=== PATIENT | male | born 1980 | race Two or more races ===

== ENCOUNTER 2023-06-05 12:35 | Emergency (ER) | payer SELFPAY ==
--- NOTE | ~2023-06-05 | CT_ITS ---
EXAMINATION: CT ABDOMEN AND PELVIS WITHOUT CONTRAST CLINICAL INFORMATION: Right flank pain. History of kidney stones. COMPARISON: None available at time of dictation. TECHNIQUE: Multidetector volumetric imaging was performed from the superior aspect of the liver through the pubic symphysis. Sagittal and coronal reformatted images were obtained on the technologist's workstation. This CT examination was performed using dose optimization techniques as appropriate, variously including the following: *Automated exposure control *Adjustment of mA and/or kV according to patient size (this includes techniques or standardized protocols for targeted exams where dose is matched to indication/reason for exam; i.e. extremities or head) *Use of iterative reconstruction technique DLP: 466 mGy-cm FINDINGS: LUNG BASES: The visualized lung bases are unremarkable. LIVER, GALLBLADDER, AND BILIARY TREE: The liver is normal in size, shape, and attenuation. No focal hepatic lesion or biliary ductal dilatation is present. The gallbladder is unremarkable with no evidence of radiopaque gallstones, gallbladder wall thickening, or obvious pericholecystic inflammatory changes. PANCREAS: Unremarkable. SPLEEN: Unremarkable. ADRENAL GLANDS: Unremarkable. KIDNEYS AND URETERS: The kidneys are normal in size, shape, and attenuation. No hydronephrosis, hydroureter, or calculi seen. No perinephric stranding. BLADDER: Unremarkable. GASTROINTESTINAL TRACT: The small bowel and colon are normal in caliber. There is no pericolonic inflammatory stranding. The appendix is normal in appearance. ABDOMINAL WALL: No significant hernia is appreciated. LYMPH NODES: No lymphadenopathy. VASCULAR: No abdominal aortic aneurysm. PELVIC VISCERA: Unremarkable. There are pelvic phleboliths. OSSEOUS STRUCTURES: Unremarkable. CT/CT abdomen pelvis wo IV con IMPRESSION: No renal, ureteral, or urinary bladder calculus is identified. Calcifications within the pelvis are felt to represent pelvic phleboliths as opposed to distal ureteral calculi. The remainder of the examination is within normal limits. Fleischner guidelines were followed.
[2023-06-05 13:13] VITALS: BP 106/74; PULSE 70; RESP 18; TEMP 36.6; O2SAT 96; BMI 26.6
--- NOTE | 2023-06-05 13:13 | ED_ITS ---
HPI - General Adult General Chief complaint: General Medical Stated complaint: Kidney stones Time Seen by Provider: 06/05/23 20:42 Source: patient and family Mode of arrival: ambulatory Limitations: no limitations History of Present Illness HPI narrative: Patient comes to the emergency room complaining of right-sided flank pain since yesterday. Patient states that he denies hematuria or dysuria. Patient states that he has a kidney stones in the past, last time 4 years ago. Patient denies any falls or trauma. Denies nausea or vomiting. Related Data Previous Rx's ?Medication ?Instructions ?Recorded ibuprofen 600 mg tablet 600 mg PO TID PRN fever or pain 06/05/23 #20 tabs tramadol 50 mg tablet 50 mg PO BID PRN pain #6 tabs 06/05/23 Allergies Allergy/AdvReac Type Severity Reaction Status Date / Time No Known Allergies Allergy Verified 06/05/23 13:14 Review of Systems 2 Review of Systems: Constitutional : No Weight loss, No Fever, No Chills, No Night Sweats, No Fatigue, No Malaise ENT/Mouth : No Hearing loss, No Ear Pain, No Nasal Congestion, No Sinus Pain, No Hoarseness, No sore throat, No Rhinorrhea, No Swallowing Difficulty Eyes: No Eye Pain, No Swelling, No Redness, No Foreign Body, No Discharge, No Vision Changes Cardiovascular : No Chest Pain, No SOB, No Dyspnea on Exertion, No Orthopnea, No Edema, No Palpitations Respiratory : No Cough, No Sputum, No Wheezing, No Smoke Exposure, No Dyspnea Gastrointestinal : Complaining of mild Nausea, No Vomiting, No Diarrhea, No Constipation, No abdominal Pain, No Hematochezia, No Melena Genitourinary : no irregular bleeding, No Dysuria, No Urinary Frequency, No Hematuria, No Urinary Incontinence, No Urgency, complaining of right-sided Flank Pain, No Urinary Flow Changes, No Hesitancy Musculoskeletal : No joint pain, No Myalgias, No Joint Swelling Skin : No Skin Lesions, No rash Neuro : No Weakness, No Numbness, No Paresthesias, No Loss of Consciousness, No Dizziness, No Headache Psych : No Anxiety/Panic, No Depression, No SI/HI/AH/VH, No Social Issues, Heme/Lymph: No Bruising, No Bleeding,No Lymphadenopathy Endocrine : No Polyuria, No Polydipsia, No Temperature Intolerance [facility] Past Medical History Medical History (Updated 06/05/23 @ 21:24 by Marlen Beaulieu MD) Kidney stones Social History Social History Advance Directives: No Advance Directives Information Provided: No Do you have a plan to hurt others: No Plan Physical Exam ED Vital Signs: Vital Signs - 24 hr 06/05/23 13:13 06/05/23 20:17 Temperature 97.9 F Pulse Rate 70 64 Respiratory Rate 18 19 Blood Pressure 106/74 120/75 Pulse Oximetry 96 98 Oxygen Delivery Method Room Air Room Air BMI result Body Mass Index 26.6 Const Other: Appearance: Alert. Oriented X3. No acute distress. Well-appearing Eyes: Pupils equal, round and reactive to light. ENT: Pharynx normal. Neck: Normal inspection. Neck supple. No lymph nodes noted. No crepitus CVS: Normal heart rate and rhythm. Pulses normal. Normal S1 and S2 Respiratory: No respiratory distress. Breath sounds normal. No Wheezing. No rales Abdomen: Soft and nontender. No rigidity. No distention. The flank pain to palpation over right side Skin: Skin warm and dry. Normal skin color. Normal skin turgor. Extremities: No lower extremity edema. No Lacerations. No Rash Neuro: Oriented X 3. No motor deficit. No sensory deficit. Moving all extremities. No slurred speech. CN 2 through 12 grossly intact Psych: calm, cooperative, normal affect Course Course Course Narrative: This is a rapid medical exam: Additional HPI, ROS, PE not included below will be deferred to primary provider. Patient is a 43-year-old male with history of kidney stones presenting to the ED with complaint of R flank pain since yesterday, states feels similar to prior stones. Nausea without vomiting. Denies gross hematuria. Plan: UA, labs, CT Medical Decision Making Medical Decision Making [facility] Narrative: -my interpretation of labs, hematology and chemistry do not show any acute abnormality , urinalysis negative -interpretation of CT scan, no obvious kidney stones. -patient states that he feels well, declined any pain medication. Differential Diagnosis Differential Diagnoses: The differential diagnosis associated with the presentation includes (UTI, pyelonephritis, kidney stone, SBO) Admission/Observation Consideration of admission/observation: Escalation of care including admission/observation considered (Given patient's signs and symptoms and duration of pain, admission was considered) Lab Data [facility] Lab Attestation statement: I reviewed the patient's lab results. 06/05/23 13:36 06/05/23 13:36 Labs: Lab Results 06/05/23 06/05/23 Range/Units 13:36 21:02 WBC 7.3 (4.8-10.8) X10*3/uL RBC 4.58 L (4.60-5.80) X10*6/uL Hgb 14.2 (14.0-18.0) g/dl Hct 41.2 L (42.0-52.0) % MCV 90.0 (80.0-98.0) fL MCH 31.0 (27.0-33.0) pg MCHC 34.5 (31.0-36.0) g/dl RDW 10.7 L (11.0-16.0) % Plt Count 239 (160-400) X10*3/uL MPV 9.2 L (9.4-12.4) fL Immature Gran % (Auto) 0.1 (0.0-0.4) % Neut % (Auto) 52.0 (45-73) % Lymph % (Auto) 38.9 (20-40) % [place] % (Auto) 6.2 (2-11) % Eos % (Auto) 2.1 (0-4) % Baso % (Auto) 0.7 (0-2) % Lymph # (Auto) 2.8 (1.2-4.9) X10*3/uL [place] # (Auto) 0.5 (0.1-1.2) X10*3/uL Eos # (Auto) 0.2 (0.0-0.4) X10*3/uL Baso # (Auto) 0.1 (0.0-0.2) X10*3/uL Abs Immat Gran (auto) 0.01 (0.00-0.03) X10*3/uL Absolute Neuts (auto) 3.8 (2.0-8.3) x10*3/uL Absolute Nucleated RBC 0.000 (0.0-0.012) X10*3/uL Nucleated RBC % (auto) 0.0 (0.0-0.2) /100WBC Sodium 140 (135-145) mmol/L Potassium 4.2 (3.3-5.1) mmol/L Chloride 107 (96-108) mmol/L Carbon Dioxide 30 H (22-29) mmol/L Anion Gap 7 L (12-20) BUN 11 (9-16) mg/dL Creatinine 0.87 (0.5-1.4) mg/dL Estim Creat Clear Calc 100.8 Estimated GFR > 60 Random Glucose 93 (60-115) mg/dL Calcium 9.7 (8.4-10.2) mg/dL Total Bilirubin 0.7 (0.0-1.0) mg/dL AST 62 H (5-37) U/L ALT 34 (0-40) U/L Alkaline Phosphatase 106 (39-117) U/L Total Protein 7.9 (6.5-8.0) g/dL Albumin 4.3 (3.5-5.0) g/dL Urine Color Yellow Urine Appearance Clear Urine pH 7.0 (5.0-9.0) Ur Specific [place] 1.025 (1.005-1.025) Urine Protein Negative (Neg-Trace) mg/dL Urine Glucose (UA) Negative (Negative) mg/dL Urine Ketones Trace (Negative) mg/dL Urine Blood Negative (Negative) Urine Nitrite Negative (Negative) Ur Leukocyte Esterase Negative (Negative) Independent Interpretation I performed an independent interpretation of an: CT Scan Radiology Impression Discussion of test interpretation with radiology: I have reviewed the radiologist's reading. Radiologist Impression: FINDINGS: LUNG BASES: The visualized lung bases are unremarkable. LIVER, GALLBLADDER, AND BILIARY TREE: The liver is normal in size, shape, and attenuation. No focal hepatic lesion or biliary ductal dilatation is present. The gallbladder is unremarkable with no evidence of radiopaque gallstones, gallbladder wall thickening, or obvious pericholecystic inflammatory changes. PANCREAS: Unremarkable. SPLEEN: Unremarkable. ADRENAL GLANDS: Unremarkable. KIDNEYS AND URETERS: The kidneys are normal in size, shape, and attenuation. No hydronephrosis, hydroureter, or calculi seen. No perinephric stranding. BLADDER: Unremarkable. GASTROINTESTINAL TRACT: The small bowel and colon are normal in caliber. There is no pericolonic inflammatory stranding. The appendix is normal in appearance. ABDOMINAL WALL: No significant hernia is appreciated. LYMPH NODES: No lymphadenopathy. VASCULAR: No abdominal aortic aneurysm. PELVIC VISCERA: Unremarkable. There are pelvic phleboliths. OSSEOUS STRUCTURES: Unremarkable. CT/CT abdomen pelvis wo IV con IMPRESSION: No renal, ureteral, or urinary bladder calculus is identified. Calcifications within the pelvis are felt to represent pelvic phleboliths as opposed to distal ureteral calculi. The remainder of the examination is within normal limits. Critical Care Time Critical Care Time Critical Care Time: Yes Total Critical Care Time: 35 Attestation: I have personally provided critical care time. Time includes review of lab data, radiology results, discussion with consultants, and monitoring for potential decompensation. Intervention performed as documented. Discharge Plan Discharge Clinical Impression: Right flank pain Patient Disposition: Home, Self-Care Instructions: Abdominal Pain (ED) Additional Instructions: Please follow-up with your primary care physician tomorrow. If you have any worsening or new symptoms, please return to the emergency room or call 911 Prescriptions: New tramadol 50 mg tablet 50 mg PO BID PRN (Reason: pain) Qty: 6 0RF ibuprofen 600 mg tablet 600 mg PO TID PRN (Reason: fever or pain) Qty: 20 0RF Print Language: Yi
[2023-06-05 13:40] LABS: MANUAL DIFF FLAG NO
[2023-06-05 13:45] LABS: Basophils Absolute Auto 0.1 X10*3/uL (0.0-0.2); Basophils Percent Auto 0.7 % (0-2); Eosinophils Absolute Auto 0.2 X10*3/uL (0.0-0.4); Eosinophils Percent Auto 2.1 % (0-4); Hematocrit 41.2 % (42.0-52.0); Hemoglobin 14.2 g/dl (14.0-18.0); Imm Gran Abs Auto 0.01 X10*3/uL (0.00-0.03); Imm Gran Pct Auto 0.1 % (0.0-0.4); Lymphocytes Absolute Auto 2.8 X10*3/uL (1.2-4.9); Lymphocytes Percent Auto 38.9 % (20-40); Mean Corpuscular HGB Conc 34.5 g/dl (31.0-36.0); Mean Platelet Volume 9.2 fL (9.4-12.4); Monocytes Absolute Auto 0.5 X10*3/uL (0.1-1.2); Monocytes Percent Auto 6.2 % (2-11); Neutrophils Absolute Auto 3.8 x10*3/uL (2.0-8.3); Platelet Count 239 X10*3/uL (160-400); Red Blood Count 4.58 X10*6/uL (4.60-5.80); Red Cell Distribution Width 10.7 % (11.0-16.0); White Blood Count 7.3 X10*3/uL (4.8-10.8)
[2023-06-05 14:01] LABS: Alanine Aminotransferase 34 U/L (0-40); Albumin Level 4.3 g/dL (3.5-5.0); Alkaline Phosphatase 106 U/L (39-117); Anion Gap 7 (12-20); Aspartate Amino Transferase 62 U/L (5-37); Bilirubin Total 0.7 mg/dL (0.0-1.0); Blood Urea Nitrogen 11 mg/dL (9-16); Calcium 9.7 mg/dL (8.4-10.2); Carbon Dioxide 30 mmol/L (22-29); Chloride 107 mmol/L (96-108); Creatinine Clr Calc Pharmacy 100.8; Estimated Glomerular Filt Rate > 60; Glucose Random 93 mg/dL (60-115); Potassium 4.2 mmol/L (3.3-5.1); Sodium 140 mmol/L (135-145); Total Protein 7.9 g/dL (6.5-8.0)
[2023-06-05 20:17] VITALS: BP 120/75; PULSE 64; RESP 19; O2SAT 98
[2023-06-05 21:11] LABS: Appearance Urine Clear; Color Urine Yellow; Glucose Urine UA Negative (Negative); Leukocyte Esterase Urine Negative (Negative); Nitrite Urine Negative (Negative); Specific Gravity - Urine 1.025 (1.005-1.025); Urine Blood Negative (Negative); Urine Ketones Trace mg/dL (Negative); Urine Protein Negative (Neg-Trace)
[2023-06-05 21:49] VITALS: BP 120/75; PULSE 64; RESP 19; TEMP 36.6; O2SAT 98
== END 2023-06-05 21:50 | disposition home or self-care (01) ==
PROVIDERS: Registered Nurse Emergency; Emergency Provider Emergency Medicine
DX: R10.2 Pelvic and perineal pain (principal); R10.9 Unspecified abdominal pain; Z79.899 Other long term (current) drug therapy
CPT/HCPCS: 36415; 74176; 80053; 81003; 85025; 99284

== ENCOUNTER 2023-12-26 08:23 | Emergency (ER) | payer MEDICAID, OTHER, SELFPAY ==
--- NOTE | ~2023-12-26 | US_ITS ---
EXAMINATION: US ABDOMEN LIMITED CLINICAL INFORMATION: Right upper quadrant abdomen pain. COMPARISON: None available. TECHNIQUE: Real-time imaging of the right upper quadrant abdominal viscera limited to the gallbladder is seen grayscale and color Doppler technique.. FINDINGS: Gallbladder is fluid-filled with layering hyperechoic abnormality is without posterior shadowing. No pericholecystic fluid collection or gallbladder wall thickening. Common bile duct measures 3 mm. US/US abdomen limited IMPRESSION: Biliary sludge. Electronically signed by: Fadi Wilson MD 12/26/2023 11:21 AM FIDELINA
--- NOTE | ~2023-12-26 | CT_ITS ---
EXAMINATION: CT ABDOMEN AND PELVIS WITH CONTRAST CLINICAL INFORMATION: Right-sided abdominal pain. COMPARISON: Abdominal ultrasound dated 12/26/[address] abdomen/pelvis dated 06/05/2023. TECHNIQUE: Multidetector volumetric images were obtained from the superior aspect of the liver through the pubic symphysis following administration 85 mL of Omnipaque 350 intravenous contrast. Sagittal and coronal reformatted images were obtained on the technologist's workstation. Oral contrast: No This CT examination was performed using dose optimization techniques as appropriate, variously including the following: *Automated exposure control *Adjustment of mA and/or kV according to patient size (this includes techniques or standardized protocols for targeted exams where dose is matched to indication/reason for exam; i.e. extremities or head) *Use of iterative reconstruction technique DLP: 464 mGy-cm FINDINGS: LUNG BASES: The visualized lung bases are unremarkable. LIVER, GALLBLADDER, AND BILIARY TREE: The liver is normal in size, shape, and attenuation. No focal hepatic lesion or biliary ductal dilatation is present. The gallbladder is unremarkable with no evidence of radiopaque gallstones, gallbladder wall thickening, or obvious pericholecystic inflammatory changes. PANCREAS: Unremarkable. SPLEEN: Unremarkable. ADRENAL GLANDS: Unremarkable. KIDNEYS AND URETERS: The kidneys are normal in size and shape. There is a wedge-shaped area of hypoenhancement within the posteromedial upper pole of the right kidney measuring up to 3.6 cm in AP dimension. Findings could represent focal pyelonephritis in the appropriate clinical setting. Stable adjacent right upper pole simple cyst. No enhancing renal parenchymal lesion. No hydronephrosis or hydroureter. No renal or ureteral stone. No perinephric or periureteral stranding. BLADDER: Unremarkable. GASTROINTESTINAL TRACT: No small or large bowel obstruction. No bowel wall thickening or inflammatory change. Unremarkable appendix. PERITONEAL CAVITY: No intraabdominal free air or free fluid. No intra-abdominal mass or organized fluid collection. ABDOMINAL WALL: No significant hernia is appreciated. LYMPH NODES: No lymphadenopathy. VASCULAR: Unremarkable. PELVIC VISCERA: The prostate and seminal vesicles are unremarkable. OSSEOUS STRUCTURES: No acute osseous abnormality. Posterior left acetabular stabilization plate and fixation screws without evidence of hardware complication. Chronic avascular necrosis within the left femoral head, unchanged when compared to the prior CT. No evidence of cortical collapse. CT/CT abdomen pelvis w IV con IMPRESSION: 1. Wedge-shaped area of hypoenhancement within the posteromedial upper pole of the right kidney measuring up to 3.6 cm. Findings could represent focal pyelonephritis in the appropriate clinical setting. 2. No additional renal parenchymal lesion. No hydronephrosis or nephrolithiasis. Unremarkable urinary bladder. 3. No small or large bowel obstruction. No bowel wall thickening or inflammatory change. Unremarkable appendix. 4. No intra-abdominal mass, lymphadenopathy, or ascites. Fleischner guidelines were followed. Electronically signed by: Mrak Andrade MD 12/26/2023 01:20 PM [facility]
[2023-12-26 08:25] VITALS: BP 119/81; PULSE 72; RESP 18; TEMP 36.4; O2SAT 97; BMI 26.0
--- NOTE | 2023-12-26 08:34 | PC.NURSE ---
completed triage assessment with [employer] [place]i mechanical systems control engineer #[id number]
[2023-12-26 08:43] LABS: MANUAL DIFF FLAG NO
[2023-12-26 08:47] LABS: Basophils Absolute Auto 0.1 X10*3/uL (0.0-0.2); Basophils Percent Auto 0.8 % (0-2); Eosinophils Absolute Auto 0.5 X10*3/uL (0.0-0.4); Eosinophils Percent Auto 7.1 % (0-4); Hematocrit 41.4 % (42.0-52.0); Hemoglobin 14.2 g/dl (14.0-18.0); Imm Gran Abs Auto 0.01 X10*3/uL (0.00-0.03); Imm Gran Pct Auto 0.1 % (0.0-0.4); Lymphocytes Absolute Auto 2.6 X10*3/uL (1.2-4.9); Mean Corpuscular HGB Conc 34.3 g/dl (31.0-36.0); Mean Corpuscular Hemoglobin 31.2 pg (27.0-33.0); Mean Platelet Volume 9.2 fL (9.4-12.4); Monocytes Absolute Auto 0.5 X10*3/uL (0.1-1.2); Monocytes Percent Auto 6.9 % (2-11); Neutrophils Absolute Auto 3.5 x10*3/uL (2.0-8.3); Neutrophils Percent Auto 49.1 % (45-73); Platelet Count 211 X10*3/uL (160-400); Red Blood Count 4.55 X10*6/uL (4.60-5.80); Red Cell Distribution Width 10.9 % (11.0-16.0); White Blood Count 7.2 X10*3/uL (4.8-10.8)
[2023-12-26 09:06] LABS: Alanine Aminotransferase 57 U/L (0-40); Albumin Level 4.5 g/dL (3.5-5.0); Alkaline Phosphatase 110 U/L (39-117); Anion Gap 8 (12-20); Aspartate Amino Transferase 76 U/L (5-37); Bilirubin Total 1.2 mg/dL (0.0-1.0); Blood Urea Nitrogen 15 mg/dL (9-16); Calcium 9.4 mg/dL (8.4-10.2); Carbon Dioxide 31 mmol/L (22-29); Chloride 103 mmol/L (96-108); Creatinine Clr Calc Pharmacy 86.8; Estimated Glomerular Filt Rate > 60; Glucose Random 101 mg/dL (60-115); Lipase 32 U/L (8-78); Potassium 3.9 mmol/L (3.3-5.1); Sodium 138 mmol/L (135-145); Total Protein 7.7 g/dL (6.5-8.0)
[2023-12-26 09:24] LABS: Influenza A PCR NEGATIVE (Negative); Influenza B PCR NEGATIVE (Negative); Resp Syncy Virus RNA Qual PCR NEGATIVE (Negative); SARS COV2 PCR INHOUSE NEGATIVE (Negative)
[2023-12-26] MEDS: Ketorolac Tromethamine 30 MG/ML VIAL 15 MG IVPUSH (09:24)
[2023-12-26] MEDS: 0.9 % Sodium Chloride 1,000 ML 999 ML IV (09:34)
--- NOTE | 2023-12-26 09:35 | ED.ABDPAIN ---
HPI - Abdominal Pain General Chief Complaint: Abdominal Pain Stated Complaint: R sided abd pain Time Seen by Provider: 12/26/23 09:13 Source: patient and seater grinder (Eritrean) Mode of arrival: ambulatory History of Present Illness ED Provider: Seymour HILTON narrative: 43-year-old male without significant past medical history or use of prescription medications presents with 2 days of right sided/upper quadrant pain that he states is become very constant in nature, no radiation into the back, associated with nausea but no episodes of vomiting and has had chills but no fever. Patient reports he has had no intra-abdominal surgeries. Related Data Previous Rx's ?Medication ?Instructions ?Recorded ibuprofen 600 mg tablet 600 mg PO TID PRN fever or pain 06/05/23 #20 tabs tramadol 50 mg tablet 50 mg PO BID PRN pain #6 tabs 06/05/23 cefdinir 300 mg capsule 300 mg PO BID 7 days #14 caps 12/26/23 ondansetron 4 mg disintegrating 4 mg PO Q8H PRN nausea and 12/26/23 tablet vomiting #10 tabs Allergies Allergy/AdvReac Type Severity Reaction Status Date / Time No Known Allergies Allergy Verified 12/26/23 08:30 Review of Systems Review of Systems Pertinent positives and negatives as stated in HPI PMFSH Past Medical History Medical History Kidney stones Social History Social History Smoked in Last 30 Days: No Use of substances other than those prescribed or required for medical reasons: No Advance Directives: No Advance Directives Information Provided: Yes Do you have a plan to hurt others: No Plan Physical Exam ED Vital Signs: Vital Signs - 24 hr 12/26/23 08:25 12/26/23 10:13 12/26/23 12:53 Temperature 97.6 F 97.7 F 98.1 F Pulse Rate 72 62 65 Respiratory Rate 18 16 18 Blood Pressure 119/81 128/76 118/75 Pulse Oximetry 97 98 97 Oxygen Delivery Method Room Air Room Air Room Air BMI result Body Mass Index 26.0 VITAL SIGNS: Reviewed. GENERAL: Well developed, well nourished, in no acute distress. HEAD: Normocephalic/atraumatic EYES: PERRLA, EOMI EARS: Ext canals without abnormality NOSE: Nares patent bilateral OROPHARYNX: no oral lesions noted, posterior pharynx clear NECK: Supple, no adenopathy LUNGS: Normal breath sounds. No adventitious sounds or accessory muscle use. SpO2<97> CARDIOVASCULAR: Regular rate and rhythm without noted murmurs ABDOMEN: Soft, right upper quadrant pain Calhoun's positive, non-distended with bowel sounds. MUSCULOSKELETAL: No tenderness, deformities, or effusions noted on gross inspection. EXTREMITIES: No cyanosis, clubbing or edema. SKIN: Inspection of the skin reveals no rashes NEUROLOGIC: Alert and oriented x 4. Strength and sensation to light touch were grossly intact x 4. Medical Decision Making Medical Decision Making MDM Narrative: 43-year-old male with history and clinical presentation, DDX: Acute cholecystitis, choledocholithiasis, pancreatitis, renal colic, appendicitis felt to be less likely an obstruction unlikely. 0939: I reviewed and interpreted all investigations and there is no leukocytosis/anemia or thrombocytopenia. There is no demonstrated DAVIDA/electrolyte derangements. Patient has elevation of T bili and transaminases but there is no elevation of alkaline phosphatase so do not suspect choledocholithiasis at this time and instead suspect an acute cholecystitis with associated Marizzi's. INTERVENTION: IV fluids, Zofran, pain medication, lactic acid, blood cultures, antibiotics, ultrasound 1129: Ultrasound demonstrated gallbladder sludge but no gallbladder wall thickening/pericholecystic fluid and no discrete evidence of gallstones. CBD-3 mm 1350: CT scan negative for any acute findings other than a wedge-shaped hypo enhancement approximately 3 cm within the right kidney being described as possible focal pyelonephritis. Renal function is otherwise within normal limits, urinalysis is negative for evidence of infection or hematuria. I explained all results and findings as well as plans with patient at bedside via the [place] seater grinder and will provide a outpatient follow-up with urology. Patient understands that he should take Tylenol ibuprofen for pain and that he will be discharged with nausea control medication and is encouraged to return if none of the medications control his symptoms or if he develops fever and chills. I reached out to Dr Arteaga who will follow the patient and recommends outpatient antibiotics even though urine is clear. Differential Diagnosis Differential Diagnoses: The differential diagnosis associated with the presentation includes See above Admission/Observation Consideration of admission/observation: Escalation of care including admission/observation considered Plan for admission Consult Healthcare Provider Management of the patient was discussed with: It Service Delivery Manager See above Lab Data MDM Lab Attestation statement: I reviewed the patient's lab results. Please see the discussion above 12/26/23 08:37 12/26/23 08:37 Labs: Lab Results 12/26/23 12/26/23 12/26/23 Range/Units 08:37 09:26 09:32 WBC 7.2 (4.8-10.8) X10*3/uL RBC 4.55 L (4.60-5.80) X10*6/uL Hgb 14.2 (14.0-18.0) g/dl Hct 41.4 L (42.0-52.0) % MCV 91.0 (80.0-98.0) fL MCH 31.2 (27.0-33.0) pg MCHC 34.3 (31.0-36.0) g/dl RDW 10.9 L (11.0-16.0) % Plt Count 211 (160-400) X10*3/uL MPV 9.2 L (9.4-12.4) fL Immature Gran % (Auto) 0.1 (0.0-0.4) % Neut % (Auto) 49.1 (45-73) % Lymph % (Auto) 36.0 (20-40) % [place] % (Auto) 6.9 (2-11) % Eos % (Auto) 7.1 H (0-4) % Baso % (Auto) 0.8 (0-2) % Lymph # (Auto) 2.6 (1.2-4.9) X10*3/uL [place] # (Auto) 0.5 (0.1-1.2) X10*3/uL Eos # (Auto) 0.5 H (0.0-0.4) X10*3/uL Baso # (Auto) 0.1 (0.0-0.2) X10*3/uL Abs Immat Gran (auto) 0.01 (0.00-0.03) X10*3/uL Absolute Neuts (auto) 3.5 (2.0-8.3) x10*3/uL Absolute Nucleated RBC 0.000 (0.0-0.012) X10*3/uL Nucleated RBC % (auto) 0.0 (0.0-0.2) /100WBC Sodium 138 (135-145) mmol/L Potassium 3.9 (3.3-5.1) mmol/L Chloride 103 (96-108) mmol/L Carbon Dioxide 31 H (22-29) mmol/L Anion Gap 8 L (12-20) BUN 15 (9-16) mg/dL Creatinine 1.01 (0.5-1.4) mg/dL Estim Creat Clear Calc 86.8 Estimated GFR > 60 Random Glucose 101 (60-115) mg/dL Lactic Acid 1.1 (0.5-2.0) mmol/L Calcium 9.4 (8.4-10.2) mg/dL Magnesium 2.0 (1.6-2.6) mg/dL Total Bilirubin 1.2 H (0.0-1.0) mg/dL AST 76 H (5-37) U/L ALT 57 H (0-40) U/L Alkaline Phosphatase 110 (39-117) U/L Total Protein 7.7 (6.5-8.0) g/dL Albumin 4.5 (3.5-5.0) g/dL Lipase 32 (8-78) U/L Urine Color Yellow Urine Appearance Clear Urine pH 5.5 (5.0-9.0) Ur Specific [place] 1.025 (1.005-1.025) Urine Protein Negative (Neg-Trace) mg/dL Urine Glucose (UA) Negative (Negative) mg/dL Urine Ketones Negative (Negative) mg/dL Urine Blood Negative (Negative) Urine Nitrite Negative (Negative) Ur Leukocyte Esterase Negative (Negative) Influenza Type A (PCR) NEGATIVE (Negative) Influenza Type B (PCR) NEGATIVE (Negative) RSV RNA Qual (PCR) NEGATIVE (Negative) SARS-CoV-2 RNA (RT-PCR) NEGATIVE (Negative) Radiology Impression Discussion of test interpretation with radiology: I have reviewed the radiologist's reading. Radiologist Impression: See above External Record Review External record reviewed: Prior outpatient radiology Medications Administered Discontinued Medications Generic Name Dose Route Start Last Admin Trade Name Freq PRN Reason Stop Dose Admin Sodium Chloride 1,000 mls @ 999 mls/hr 12/26/23 09:30 12/26/23 10:50 Ns IV 12/26/23 10:30 Infused .Q1H1M KATE Infusion Piperacillin Sod/Tazobactam 50 mls @ 100 mls/hr 12/26/23 09:28 12/26/23 10:06 Sod 3.375 gm/ Sodium Chloride IV 12/26/23 09:57 Infused ONCE ONE Infusion Iohexol 100 ml 12/26/23 11:13 12/26/23 11:14 Iohexol 350 Mg/Ml 100 Ml Infus..Btl IV 12/26/23 11:14 85 ml ONCE ONE Administration Ketorolac Tromethamine 15 mg 12/26/23 09:13 12/26/23 09:24 Ketorolac Tromethamine 30 Mg/Ml Vial IVPUSH 12/26/23 09:14 15 mg ONCE ONE Administration Ondansetron HCl 4 mg 12/26/23 09:28 12/26/23 09:36 Ondansetron Hcl 4 Mg/2 Ml Vial IVPUSH 12/26/23 09:29 4 mg ONCE ONE Administration Critical Care Time Critical Care Time Critical Care Time: Yes Total Critical Care Time: 30 Attestation: I personally attest to this time spent taking care of the patient. Discharge Plan Discharge Clinical Impression: Acute right flank pain, Abnormal radiologic findings on diagnostic imaging of right kidney, Pyelonephritis Patient Disposition: Home, Self-Care Instructions: Kidney Infection (ED), Flank Pain (ED) Additional Instructions: Recommend [id number] Tylenol/ibuprofen as needed for pain control. Complete the course of antibiotics as prescribed. You are also being prescribed nausea medication. The referral for Urology is below and you should call the office to set up an appointment for re-evaluation. Return to the ER if you develop any worsening pain, fever, or chills. Prescriptions: New ondansetron 4 mg tablet,disintegrating 4 mg PO Q8H PRN (Reason: nausea and vomiting) Qty: 10 0RF cefdinir 300 mg capsule 300 mg PO BID 7 Days Qty: 14 0RF No Action tramadol 50 mg tablet 50 mg PO BID PRN (Reason: pain) Qty: 6 0RF ibuprofen 600 mg tablet 600 mg PO TID PRN (Reason: fever or pain) Qty: 20 0RF Referrals: Emmanuel Arteaga MD [Physician] - Print Language: Eritrean
[2023-12-26] MEDS: ondansetron HCL 4 MG/2 ML VIAL IVPUSH (09:36)
[2023-12-26] MEDS: Piperacillin Sodium/Tazobactam 3.375 GM in 0.9 % Sodium Chloride 50 ML IV (09:36)
[2023-12-26 09:42] LABS: Appearance Urine Clear; Color Urine Yellow; Glucose Urine UA Negative (Negative); Leukocyte Esterase Urine Negative (Negative); Nitrite Urine Negative (Negative); PH 5.5 (5.0-9.0); Specific Gravity - Urine 1.025 (1.005-1.025); Urine Blood Negative (Negative); Urine Ketones Negative (Negative); Urine Protein Negative (Neg-Trace)
--- NOTE | 2023-12-26 09:51 | PC.NURSE ---
hungarian animal ride manager services utilized via [employer]. upon assessment, pt kneeling on ground/laying on top of bed. tearful. pt a&ox4. vss and up to date. pt presents to the ED reporting severe nonradiating RUQ abd pain x 2 days. pt rating pain 10/10. pt also reports associated nausea and chills. pt denies any episodes of vomiting/diarrhea/objective fevers. 20gIV placed in the left AC - labs obtained/sent to lab. pt ambulates to the restroom w/ a strong/steady gait. no use of assistive devices needed. medication administered per provider order. effectiveness pending. pt waiting to have ultrasound completed at this time. on RA w/o difficulty. no sob/wob noted. respirations even/unlabored. plan of care ongoing. call lang placed within reach.
[2023-12-26 09:52] LABS: Lactic Acid 1.1 mmol/L (0.5-2.0)
[2023-12-26 10:13] VITALS: BP 128/76; PULSE 62; RESP 16; TEMP 36.5; O2SAT 98
--- NOTE | 2023-12-26 10:33 | PC.NURSE ---
ultrasound being completed at this time.
--- NOTE | 2023-12-26 10:59 | PC.NURSE ---
pt to CT at this time. plan of care ongoing.
[2023-12-26] MEDS: iohexoL 350 MG/ML 100 ML INFUS..BTL IV (11:14)
[2023-12-26 12:53] VITALS: BP 118/75; PULSE 65; RESP 18; TEMP 36.7; O2SAT 97
== END 2023-12-26 14:34 | disposition home or self-care (01) ==
PROVIDERS: Emergency Provider Student in an Organized Health Care Education/Training Program
DX: R10.11 Right upper quadrant pain (principal); R11.0 Nausea; N12 Tubulo-interstitial nephritis, not specified as acute or chronic; R93.421 Abnormal radiologic findings on diagnostic imaging of right kidney; Z03.818 Encounter for observation for suspected exposure to other biological agents ruled out
CPT/HCPCS: 0241U; 36415; 74177; 76705; 80053; 81003; 83605; 83690; 83735; 85025; 87040; 96361; 96374; 96375; 99285; J1885; J2405; J2543; Q9967

== ENCOUNTER → 2023-12-26 09:28 | Outpatient (BNV) | payer MEDICAID, SELFPAY | PROVIDERS: Emergency Provider Student in an Organized Health Care Education/Training Program; Visit Provider Radiology Diagnostic Radiology | DX: R10.11 Right upper quadrant pain (principal) | CPT/HCPCS: 76705 ==